=== PATIENT | male | born 1945 | race Native Hawaiian/Other Pacific Islander ===

== ENCOUNTER 2021-08-12 15:15 | Outpatient (CLI) | payer OTHER | END 2021-08-12 19:57 | disposition home or self-care (01) | LOC: US 15:15 | PROVIDERS: ATTEND Nurse Practitioner | DX: R42 Dizziness and giddiness (principal) ==

== ENCOUNTER 2021-10-10 13:33 | Outpatient (CLI) | payer OTHER | END 2021-10-10 21:08 | disposition home or self-care (01) | LOC: US 13:33 | PROVIDERS: ATTEND Podiatrist Foot & Ankle Surgery | DX: I73.9 Peripheral vascular disease, unspecified (principal) ==

== ENCOUNTER 2022-01-08 17:05 | Emergency (ER) | payer OTHER ==
[~2022-01-08] VITALS: Ht 182.9 cm; Wt 90.7 kg
[2022-01-08 19:30] VITALS: BP 124/56; TEMP 97.9
== END 2022-01-08 19:30 | disposition home or self-care (01) ==
LOC: ED 17:05
PROC: 0HQGXZZ Repair Left Hand Skin, External Approach (ICD-10-PCS; principal; 2022-01-08)
PROC: 0HQDXZZ Repair Right Lower Arm Skin, External Approach (ICD-10-PCS; 2022-01-08)
DX: S61.012A Laceration without foreign body of left thumb without damage to nail, initial encounter (principal); S51.811A Laceration without foreign body of right forearm, initial encounter; W54.0XXA Bitten by dog, initial encounter; Y92.89 Other specified places as the place of occurrence of the external cause
CPT/HCPCS: 90471; 90715; 99283; J2001

== ENCOUNTER 2022-01-17 10:50 | Emergency (ER) | payer OTHER ==
[~2022-01-17] VITALS: Ht 182.9 cm; Wt 102.1 kg
[2022-01-17 11:00] VITALS: BP 104/53; TEMP 98.7
== END 2022-01-17 11:30 | disposition home or self-care (01) ==
LOC: ED 10:50
DX: Z48.02 Encounter for removal of sutures (principal)